=== PATIENT | female | born 1970 | race Two or more races ===

== ENCOUNTER 2018-02-08 20:05 | Emergency (ER) | payer OTHER ==
[2018-02-08] MEDS ORDERED: fentaNYL* 50 MCG/ML 2 ML VIAL (100 MCG VIAL) IV SLOW PU ONE (21:03)
[2018-02-08] MEDS ORDERED: Ondansetron INJ* 2 MG/ML VIAL IV ONE (21:04)
[2018-02-08] MEDS ORDERED: Iodixanol* (CONTRAST) 320 MG/ML 100 ML SDV IV ONE (21:13)
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
[2018-02-08 21:43] LABS: ABS Basophils 0.1 10^3/ul (0-0.2); ABS Eosinophils 0.2 10^3/ul (0-0.6); ABS Lymphocytes 1.4 10^3/ul (1.0-4.8); ABS Monocytes 0.7 10^3/ul (0-0.8); ABS Neutrophils 10.4 10^3/ul (1.5-7.7); ABS Nucleated RBC 0 10^3/ul; Eosinophil % 1.8 %; Hematocrit 38 % (35-47); Hemoglobin 12.9 g/dl (12.0-16.0); Lymphocyte % 10.9 %; Mean Corpuscular HGB Conc 34 g/dl (31-36); Mean Corpuscular Hemoglobin 31 pg (27-31); Mean Corpuscular Volume 92 fL (80-97); Mean Platelet Volume 9.7 fL (7.4-10.4); Nucleated Red Blood Cells % 0.1; Platelet Count 240 10^3/ul (150-450); Red Blood Count 4.19 10^6/ul (4.00-5.40); Red Cell Distribution Width 14 % (10.5-15); White Blood Count 12.8 10^3/ul (3.5-10.8)
[2018-02-08 21:57] LABS: Albumin 4.4 g/dL (3.2-5.2); Albumin/Globulin Ratio 1.8 (1-3); BUN/Creatinine Ratio 32.7 (8-20); Calcium 9.9 mg/dL (8.6-10.3); EGFR Non-African American 117.5 (>60); Globulin 2.5 g/dL (2-4); Potassium 3.9 mmol/L (3.5-5.0); Total Bilirubin 0.5 mg/dL (0.2-1.0); Total Protein 6.9 g/dL (6.4-8.9)
[2018-02-08 21:58] LABS: Activated Partial Thrombo Time 33.6 seconds (26.0-36.3); INR 0.87 (0.77-1.02)
[2018-02-09 00:45] VITALS: BP 125/78
[2018-02-09] MEDS ORDERED: Oxymetazoline 0.05% NASAL SPR* 15 ML BTL BOTH NARES SCH (09:00)
== END 2018-02-09 00:38 | disposition home or self-care (01) ==
LOC: ED 20:05
DX: S42.202A Unspecified fracture of upper end of left humerus, initial encounter for closed fracture (principal); S00.83XA Contusion of other part of head, initial encounter; S02.2XXA Fracture of nasal bones, initial encounter for closed fracture; V48.6XXA Car passenger injured in noncollision transport accident in traffic accident, initial encounter; Y92.410 Unspecified street and highway as the place of occurrence of the external cause; J32.9 Chronic sinusitis, unspecified
CPT/HCPCS: 36415; 70450; 70486; 71045; 71260; 72125; 74177; 80053; 82550; 85025; 85610; 85730; 96374; 96375; 99282; J2405; J3010; Q9967

== ENCOUNTER 2018-02-12 02:52 | Emergency (ER) | payer SELFPAY ==
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
[2018-02-12] MEDS ORDERED: oxyCODONE TAB* 5 MG TAB PO ONE (03:27)
[2018-02-12 04:30] VITALS: BP 140/72
== END 2018-02-12 04:30 | disposition home or self-care (01) ==
LOC: ED 02:52
DX: S42.302D Unspecified fracture of shaft of humerus, left arm, subsequent encounter for fracture with routine healing (principal); R60.0 Localized edema; V49.9XXD Car occupant (driver) (passenger) injured in unspecified traffic accident, subsequent encounter
CPT/HCPCS: 99282; A9270-GY